=== PATIENT | female | born 1960 | race African-American/Black ===

== ENCOUNTER 2016-09-06 02:59 | Emergency (ER) | payer OTHER ==
[2016-09-06 03:21] VITALS: BP 142/87; PULSE 81; TEMP 98; BMI 33.6
--- NOTE | 2016-09-06 03:47 | PDOC ---
History of Present Illness - General Chief Complaint: Syncope/Near Syncope Stated Complaint: SYNCOPE Time Seen by Provider: 09/06/16 03:21 History Source: Patient, Family Exam Limitations: No Limitations - History of Present Illness Initial Comments: 09/06/16 03:42 55yo Female patient w/ PmHx: HTN, CVA, Syncope presents to ED via EMS c/o Syncope. Family states patient was trying to break up an argument between family member when she passed out onto floor. Patient states she has not really slept in 3 days due to recent of her brother. Associated h/a. Neg LOC, Neck pain, n/v/d, Cp, Back pain, Abd pain, confusion, or any other complaints at this time. EMS states patient b/p- 220/150 on scene but has since lowered. Patient c/o pain to back of head. Patient denies any other complaints at this time. Presenting Symptoms: Syncope Timing/Duration: reports: resolved prior to arrival Past History - Travel Traveled outside of the country in the last 30 days: No Close contact w/someone who was outside of country & ill: No - Past Medical History Allergies/Adverse Reactions: Allergies Allergy/AdvReac Type Severity Reaction Status Date / Time dipyridamole Allergy Intermediate Difficulty Verified 09/06/16 03:21 [From Persantine] Breathing iodine Allergy Intermediate Difficulty Verified 09/06/16 03:21 Breathing Home Medications: Ambulatory Orders Risperidone [Risperdal -] 2 mg PO DAILY #0 tablet 05/07/15 Amlodipine Besylate [Norvasc -] 10 mg PO DAILY 11/09/15 Cetirizine HCl [Zyrtec -] 10 mg PO DAILY #7 tablet 11/09/15 Clindamycin [Cleocin -] 300 mg PO TID #21 capsule 11/09/15 Asthma: No Cardiac Disorders: No CVA: Yes (tia) Diabetes: No HTN: Yes Psychiatric Problems: Yes (anxiety, depression) Suicide Attempt (Hx): Yes - Surgical History Abdominal Surgery: Yes - Immunization History Immunization Up to Date: Yes - Psycho/Social/Smoking Cessation Hx Anxiety: Yes Suicidal Ideation: No Smoking Status: No Smoking History: Never smoked Have you smoked in the past 12 months: No Number of Cigarettes Smoked Daily: 0 Information on smoking cessation initiated: No Hx Alcohol Use: No Drug/Substance Use Hx: No Substance Use Type: None Hx Substance Use Treatment: No Cardiac Specific PMH - Complaint Specific PMHX Abdominal Aortic Aneurysm: No Angina: No Cardiac Arrhythmia: No Cardiac Stent: No GERD: No Myocardial Infarction: No Pacemaker: No Pulmonary Embolus: No Valvular Heart Disease: No Peripheral Vascular Disease: No Review of Systems - Review of Systems Able to Perform ROS?: Yes Is the patient limited Maltese proficient: No Constitutional: No: Chills, Fever Respiratory: No: Cough, Shortness of Breath, Stridor, Wheezing Cardiac (ROS): Yes: Syncope. No: Chest Pain, Edema, Lightheadedness, Palpitations, Chest Tightness ABD/GI: No: Constipated, Diarrhea, Nausea, Poor Appetite, Poor Fluid Intake, Vomiting : No: Dysuria, Hematuria Musculoskeletal: No: Back Pain Integumentary: No: Erythema, Rash Neurological: Yes: Other (Head Pain). No: Headache, Numbness, Paresthesia, Seizure, Tremors, Weakness, Ataxia, Dizziness All Other Systems: Reviewed and Negative *Physical Exam - Vital Signs Last Vital Signs Temp Pulse Resp BP Pulse Ox 98.0 F 81 19 142/87 99 09/06/16 03:18 09/06/16 03:18 09/06/16 03:18 09/06/16 03:18 09/06/16 03:18 - Physical Exam General Appearance: Yes: Nourished, Appropriately Dressed, Alcohol on Breath. No: Apparent Distress, Mild Distress, Moderate Distress, Severe Distress HEENT: positive: EOMI, MARTINA, Normal ENT Inspection, Normal Voice, Symmetrical, TMs Normal, Pharynx Normal. negative: Pharyngeal Erythema, Tonsillar Exudate, Tonsillar Erythema, Nasal Congestion, Rhinorrhea, Sinus Tenderness, TM Bulging, TM Dull, TM Erythema Neck: positive: Trachea midline, Normal Thyroid, Supple. negative: Tender, Decreased range of motion, Stridor, Lymphadenopathy (R), Lymphadenopathy (L), Tender lateral, Tender midline Respiratory/Chest: positive: Lungs Clear, Normal Breath Sounds. negative: Respiratory Distress, Accessory Muscle Use, Labored Respiration, Rapid RR, Rhonchi, Stridor, Wheezing Cardiovascular: positive: Regular Rhythm, Regular Rate. negative: Edema, JVD, Murmur Gastrointestinal/Abdominal: positive: Normal Bowel Sounds, Soft. negative: Distended, Guarding, Rebound, Tenderness Musculoskeletal: positive: Normal Inspection. negative: CVA Tenderness Extremity: positive: Normal Capillary Refill, Normal Inspection, Normal Range of Motion, Pelvis Stable. negative: Pedal Edema, Swelling, Calf Tenderness Integumentary: positive: Normal Color, Dry, Warm Neurologic: positive: physical education professor II-XII NML intact, Fully Oriented, Alert, Normal Mood/ Affect, Normal Response, Motor Strength 5/5 Heart Score/ECG Review - History History: Slightly suspicious - Electrocardiogram EKG: Normal - Age Age: 45-65 - Risk Factors Risk Factors Heart Score: Yes Hx Hypertension Based on the list above the patient has:: 1-2 risk factors - Troponin Troponin: </= normal limit - Score Heart Score - Total: 2 - ECG Impressions Normal ECG: Yes Non-specific ST Elevation: No Ischemic Changes: No Bradycardia: No Torsades lynn Pointes: No WPW: No ED Treatment Course - LABORATORY CBC & Chemistry Diagram: 09/06/16 04:09 09/06/16 04:09 - ADDITIONAL ORDERS Additional order review: Laboratory Results 09/06/16 09/06/16 04:09 04:09 Sodium 144 Potassium 3.8 Chloride 105 Carbon Dioxide 28 Anion Gap 11 BUN 16 Creatinine 0.7 Creat Clearance w eGFR > 60 Random Glucose 99 Calcium 8.8 Total Bilirubin 0.2 D AST 16 ALT 27 Alkaline Phosphatase 74 Creatine Kinase 322 H D Creatine Kinase Index 0.7 CK-MB (CK-2) 2.343 Troponin I < 0.02 Total Protein 7.9 Albumin 3.9 Alcohol, Quantitative 6.9 H* 09/06/16 04:09 RBC 4.89 MCV 81.0 MCHC 32.9 RDW 15.3 MPV 10.1 Neutrophils % 41.3 L Lymphocytes % 49.0 H Monocytes % 7.2 Eosinophils % 1.9 Basophils % 0.6 - RADIOLOGY Radiology Studies Ordered: Category Date Time Status CERVICAL SPINE CT W/O CONTR [CT] Stat CT Scan 09/06/16 03:[address] WITHOUT CONTRAST [CT] Stat CT Scan 09/06/16 03:29 Taken *DC/Admit/Observation/Transfer Diagnosis at time of Disposition: Syncope Qualifiers: Syncope type: unspecified Qualified Code(s): R55 - Syncope and collapse - Discharge Dispostion Disposition: HOME Condition at time of disposition: Improved Admit: No - Patient Instructions Printed Discharge Instructions: DI for Syncope in Adults (Fainting) Additional Instructions: FOLLOW UP WITH YOUR PRIMARY CARE PROVIDER NEEDED. RETURN IF ANY CONCERNS FOR FURTHER EVALUATION. Print Language: MACEDONIAN
[2016-09-06 04:19] LABS: BASOPHIL 0.6 % (0-2.0); EOSINOPHIL 1.9 % (0-4.5); MCH 26.6 pg (25.7-33.7); MCHC 32.9 g/dl (32.0-36.0); MEAN PLT VOLUME 10.1 fl (7.5-11.1); NEUTROPHILS 41.3 % (42.8-82.8); PLATELET COUNT 122 K/MM3 (134-434); RDW 15.3 % (11.6-15.6); WHITE BLOOD COUNT 5.3 K/mm3 (4.0-10.0)
[2016-09-06 04:38] LABS: ALBUMIN 3.9 g/dl (3.4-5.0); ANION GAP 11 (8-16); BILIRUBIN,TOTAL 0.2 mg/dL (0.2-1.0); CALCIUM 8.8 mg/dL (8.5-10.1); CO2 28 mmol/L (21-32); CREATININE 0.7 mg/dL (0.55-1.02); GLUCOSE,RANDOM 99 mg/dL (74-106); SGOT/AST 16 U/L (15-37); SGPT/ALT 27 U/L (12-78); TOT PROT 7.9 g/dl (6.4-8.2)
[2016-09-06 04:41] LABS: ALK PHOS 74 U/L (45-117); TROPONIN I < 0.02 ng/ml (0.00-0.05)
--- NOTE | 2016-09-06 12:21 | EKG ---
Test Reason : Blood Pressure : / mmHG Vent. Rate : 075 BPM Atrial Rate : 075 BPM P-R Int : 210 ms QRS Dur : 094 ms QT Int : 384 ms P-R-T Axes : 053 027 048 degrees QTc Int : 428 ms SINUS RHYTHM WITH 1ST DEGREE A-V BLOCK MINIMAL VOLTAGE CRITERIA FOR LVH, MAY BE NORMAL VARIANT BORDERLINE ECG WHEN COMPARED WITH ECG OF 04-MAY-2015 19:33, [place] INTERVAL HAS INCREASED Confirmed by BERNIE PRESTON, GUMARO ([id number]) on 09/06/2016 12:20:52 PM Referred By: Confirmed By:GUMARO GIBBS MD
== END 2016-09-06 08:20 | disposition home or self-care (01) ==
LOC: JER 02:59 → SUPCPDRO 02:59 → JER 08:20
DX: R55 Syncope and collapse (principal); I10 Essential (primary) hypertension; F41.8 Other specified anxiety disorders; Z86.73 Personal history of transient ischemic attack (TIA), and cerebral infarction without residual deficits
CPT/HCPCS: 36415; 70450-TC; 72125-TC; 80053; 80307; 82550; 82553; 84484; 85025; 93005; 93010; 99283-25

== ENCOUNTER 2020-01-27 15:32 | Inpatient (IN) | payer OTHER ==
[2020-01-27 15:39] VITALS: BMI 36.8
[2020-01-27] MEDS ORDERED: dilTIAZem HCL 50 MG/10 ML - 10 ML VIAL IVPUSH ONE (15:58)
[2020-01-27] MEDS ORDERED: dilTIAZem HCL 125 MG/25 ML - 25 ML VIAL ONE (15:59)
[2020-01-27 16:06] LABS: BASO % 0.9 % (0-2.0); EOS % 1.9 % (0-4.5); HEMATOCRIT 40.1 % (32.4-45.2); HEMOGLOBIN 13.1 GM/dL (10.7-15.3); MCH 26.9 pg (25.7-33.7); MCHC 32.8 g/dl (32.0-36.0); MEAN CELL VOLUME 81.9 fl (80-96); MEAN PLT VOLUME 10.4 fl (7.5-11.1); NEUT % 37.2 % (42.8-82.8); PLATELET COUNT 165 K/MM3 (134-434); RBC 4.89 M/mm3 (3.60-5.2); RDW 15.4 % (11.6-15.6); WHITE BLOOD COUNT 6.7 K/mm3 (4.0-10.0)
--- NOTE | 2020-01-27 16:07 | PDOC ---
Documentation entered by Emily Gomez SCRIBE, acting as scribe for Dimple Jacobs MD. Dimple Jacobs MD: This documentation has been prepared by the scribe, Emily Rahman SCRIBE, under my direction and personally reviewed by me in its entirety. I confirm that the documentation accurately reflects all work, treatment, procedures, and medical decision making performed by me. Attending Attestation - Resident Resident Name: Gregorio Matthews - ED Attending Attestation I have performed the following: I have examined & evaluated the patient, The case was reviewed & discussed with the resident, I agree w/resident's findings & plan, Exceptions are as noted - HPI HPI: 59 yo F with history HTN presents from Dr. Whitmore's office for aflutter, found on EKG. She has had intermittent symptoms in the past, described as lightheadedness with palpitations. She has taken B-blockers in the past, it appears it was for the same diagnosis. Currently c/o dizziness, palpitations. - Physicial Exam PE: GENERAL: Awake, alert, and fully oriented, in no acute distress HEAD: No signs of trauma EYES: PERRLA, EOMI, sclera anicteric, conjunctiva clear ENT: Auricles normal inspection, hearing grossly normal, nares patent, oropharynx clear without exudates. Moist mucosa NECK: Normal ROM, supple, no lymphadenopathy, JVD, or masses LUNGS: Breath sounds equal, clear to auscultation bilaterally. No wheezes, and no crackles HEART: Tachycardic with regular rhythm, normal S1 and S2, no murmurs, rubs or gallops ABDOMEN: Soft, nontender, normoactive bowel sounds. No guarding, no rebound. No masses EXTREMITIES: Normal range of motion, no edema. No clubbing or cyanosis. No cords, erythema, or tenderness NEUROLOGICAL: Cranial nerves II through XII grossly intact. Normal speech. Motor and sensation intact SKIN: Warm, dry, normal turgor, no rashes or lesions noted. - Medical Decision Making 01/27/20 16:18 Pt returned to sinus rhythm with cardizem 10 mg IVP. Reports improvement in symptoms afterwards. Await labs. Will discuss case with Dr. Whitmore, plan for admission. Discharge - Discharge Information Problems reviewed: Yes Clinical Impression/Diagnosis: Atrial flutter Qualifiers: Atrial flutter type: unspecified Qualified Code(s): I48.92 - Unspecified atrial flutter Condition: Stable - Follow up/Referral - Patient Discharge Instructions - Post Discharge Activity
[2020-01-27 16:23] LABS: INR 0.93 (0.83-1.09)
--- NOTE | 2020-01-27 16:29 | PDOC ---
History of Present Illness - General Chief Complaint: Chest Pain Stated Complaint: PALPITATIONS Time Seen by Provider: 01/27/20 15:43 - History of Present Illness Initial Comments: 01/27/20 16:29 59 yo female with pmh htn presents to ED coming from [facility] office Dr. Grimm with Atachy vs Aflutter that started today. Pt explains shes had symptoms on and off for one year where she felt lightheaded and tachycardic. Pt usually just sat down and relaxed and symptoms subsided within one day. Pt explains at [facility] when she was getting rotator cuff sugery on August 24 she had similar symptoms and she was started on metroprolol 25mg for symptoms. Pt then explained that she would still have symptoms with high blood pressure in the 200s usually around 180 and then would have very high HR and then she would take her metroprolol. After taking metroprolol she would feel dizzy so she started cutting her metroprolol to 12.5 instead of her normal 25 dose in December. Since then she had more symptoms and today felt same symptoms but PSH: rotworse. Pt had appointment with hand rug braider and at [facility] rug braider office showed aflutter and then pt was sent here. Pt denies fevers, chills, SOB, chest pain, abdominal pain, or ext swelling. Pt has no dysuria or change in urine output. PMH: HTN PSH: rotator cuff and Meds: Metroprolol 25mg, HCTZ, Norvasc Allergies: dipyridamole, iodine Social: Denies smoking, drugs, or alcohol PCP: Dr. Lai Past History - Medical History Allergies/Adverse Reactions: Allergies Allergy/AdvReac Type Severity Reaction Status Date / Time dipyridamole Allergy Intermediate Difficulty Verified 01/27/20 15:37 [From Persantine] Breathing iodine Allergy Intermediate Difficulty Verified 01/27/20 15:37 Breathing Home Medications: Ambulatory Orders Amlodipine Besylate [Norvasc -] 10 mg PO DAILY 11/09/15 Lisinopril 10 mg PO DAILY 01/27/20 Metoprolol Succinate 25 mg PO DAILY 01/27/20 Asthma: No Cardiac Disorders: Yes CVA: Yes (tia) COPD: No Diabetes: No HTN: Yes Psychiatric Problems: Yes (anxiety, depression) - Surgical History Abdominal Surgery: Yes - Reproductive History Is Patient Now?: No - Immunization History Immunization Up to Date: Yes - Psycho-Social/Smoking History Smoking Status: No Smoking History: Never smoked Have you smoked in the past 12 months: No Number of Cigarettes Smoked Daily: 0 - Substance Abuse Hx (Audit-C & DAST Scrn) How often the patient has a drink containing alcohol: Never Score: In Men: 4 or > Positive; In Women: 3 or > Positive: 0 Screen Result (Pos requires Nsg. Audit-10AR): Negative Review of Systems - Review of Systems Able to Perform ROS?: Yes Comments:: 01/27/20 18:47 GENERAL/CONSTITUTIONAL: No fever or chills. No weakness. HEAD, EYES, EARS, NOSE AND THROAT: No change in vision. No ear pain or discharge. No sore throat. CARDIOVASCULAR: No chest pain or shortness of breath RESPIRATORY: No cough, wheezing, or hemoptysis. GASTROINTESTINAL: Nauseos. NO vomiting, diarrhea or constipation. GENITOURINARY: No dysuria, frequency, or change in urination. MUSCULOSKELETAL: No joint or muscle swelling or pain. No neck or back pain. SKIN: No rash NEUROLOGIC: No headache. Lightheaded ENDOCRINE: No increased thirst. No abnormal weight change *Physical Exam - Vital Signs Last Vital Signs Temp Pulse Resp BP Pulse Ox 98.5 F 78 18 102/61 99 01/27/20 15:37 01/27/20 16:10 01/27/20 16:10 01/27/20 16:10 01/27/20 16:10 - Physical Exam 01/27/20 18:51 GENERAL: Awake, alert, and fully oriented, in severe distress HEAD: No signs of trauma, normocephalic, atraumatic EYES: PERRLA, EOMI, sclera anicteric, conjunctiva clear ENT: Auricles normal inspection, hearing grossly normal, nares patent, oroph arynx clear without exudates. Moist mucosa NECK: Normal ROM, supple, no lymphadenopathy, JVD, or masses LUNGS: bilateral crackles at bases. HEART:tachycardic with irregular pulses. ABDOMEN: Soft, nontender, normoactive bowel sounds. No guarding, no rebound. No masses EXTREMITIES : Normal inspection, Normal range of motion, no edema. No clubbing or cyanosis. NEUROLOGICAL: Cranial nerves II through XII grossly intact. Normal speech, no focal sensorimotor deficits SKIN: Warm, Dry, normal turgor, no rashes or lesions noted 01/27/20 19:02 ED Treatment Course - LABORATORY CBC & Chemistry Diagram: 01/27/20 16:00 01/27/20 16:00 - ADDITIONAL ORDERS Additional order review: Laboratory Results 01/27/20 16:00 PT with INR 11.00 INR 0.93 - Medications Given in the ED: ED Medications Discontinued Medications Generic Name Dose Route Start Last Admin Trade Name Ever PRN Reason Stop Dose Admin Diltiazem HCl 20 mg 01/27/20 15:58 01/27/20 16:08 Cardizem Injection - IVPUSH 01/27/20 15:59 10 mg ONCE ONE Administration Medical Decision Making - Medical Decision Making 01/27/20 16:25 59 yo female with pmh htn presents to ED for aflutter that started today. Pt was got cbc, cmp, ekg, cardiac enzymes, coags. Pt was given 10 mg diltiazem and pt went back into sinus rhythm at 76 bpm. In initial EKG looked like demand ischemia but second ekg showed no elevations. Greenhouse Assistant Dr. Mistry was called who stated we should give 5mg eliquis BID. Stop HCTZ and norvasc and up dosage of metroprolol to 50mg based on BP. Will give 5 mg eliquis and have BP meds defered to inpatient team. 01/27/20 17:28 Pt Bp dropped to 70s/40s and mentating less decided to push 1L of NS. PT BP went up to 127/74. Pt is mentating well. Another IV was put in Right AC. 01/27/20 17:50 Pt HPI, ED course, and plan of treatment was discussed with Dr. Andrade who the admission will be under. 01/27/20 19:18 PM team made aware of pt because pt still in ED Discharge - Discharge Information Problems reviewed: Yes Clinical Impression/Diagnosis: Afib Qualifiers: Atrial fibrillation type: unspecified Qualified Code(s): I48.91 - Unspecified atrial fibrillation Condition: Guarded - Admission Yes - Follow up/Referral Referrals: Amanda Lai MD [Primary Care Provider] - - Patient Discharge Instructions - Post Discharge Activity
[2020-01-27 16:41] LABS: ALBUMIN 3.7 g/dl (3.4-5.0); ALK PHOS 69 U/L (45-117); ANION GAP 6 MMOL/L (8-16); BILIRUBIN,TOTAL 0.2 mg/dL (0.2-1); CALCIUM 8.9 mg/dL (8.5-10.1); CHLORIDE 110 mmol/L (98-107); CO2 27 mmol/L (21-32); CREATININE 0.7 mg/dL (0.55-1.3); GLUCOSE,RANDOM 112 mg/dL (74-106); POTASSIUM 4.1 mmol/L (3.5-5.1); SGOT/AST 40 U/L (15-37); SGPT/ALT 46 U/L (13-61); SODIUM 144 mmol/L (136-145); TOT PROT 7.6 g/dl (6.4-8.2)
[2020-01-27] MEDS ORDERED: SODIUM CHLORIDE 0.9% 500 ML INFUS.BAG IV ONE (16:46)
--- NOTE | 2020-01-27 18:56 | CON.CARD ---
Consult Consult Specialty:: Cardiology - History of Present Illness History of Present Illness: Presented to [facility] office with palpitations, weakness, lightness. Similar symptoms for the year with negative dx, stress MIBI and ECHO 24 Holter In the office A tachy 2;1 block VR 140 BP 100/60 - patient usually runs BP 150-170 systolic ECHO today in the office nl LV nl EF nl RV I the ER converted to SR 1 degree AVB with 10 mg of Cardizem IV with resolution of Sx - History Source History Provided By: Patient, Medical Record - Past Medical History PEDIATRIC ASSOCIATE: Yes: Syncope Cardio/Vascular: Yes: HTN ...: No Psych: Yes: Schizophrenia - Past Surgical History Past Surgical History: Yes: , Hysterectomy - Alcohol/Substance Use Hx Alcohol Use: No - Smoking History Smoking history: Never smoked Have you smoked in the past 12 months: No Aproximately how many cigarettes per day: 0 Home Medications - Allergies Allergies/Adverse Reactions: Allergies Allergy/AdvReac Type Severity Reaction Status Date / Time dipyridamole Allergy Intermediate Difficulty Verified 01/27/20 15:37 [From Persantine] Breathing iodine Allergy Intermediate Difficulty Verified 01/27/20 15:37 Breathing - Home Medications Home Medications: Ambulatory Orders Amlodipine Besylate [Norvasc -] 10 mg PO DAILY 11/09/15 Lisinopril 10 mg PO DAILY 01/27/20 Metoprolol Succinate 25 mg PO DAILY 01/27/20 Review of Systems - Review of Systems Constitutional: reports: Malaise, Weakness Eyes: reports: No Symptoms HENT: reports: No Symptoms Neck: reports: No Symptoms Cardiovascular: reports: No Symptoms, Palpitations Gastrointestinal: reports: No Symptoms Genitourinary: reports: No Symptoms Breasts: reports: No Symptoms Reported Musculoskeletal: reports: No Symptoms Integumentary: reports: No Symptoms Neurological: reports: No Symptoms Endocrine: reports: No Symptoms Hematology/Lymphatic: reports: No Symptoms Psychiatric: reports: No Symptoms Vital Signs: Vital Signs Temperature 98.5 F 01/27/20 15:37 Pulse Rate 78 01/27/20 16:10 Respiratory Rate 18 01/27/20 16:10 Blood Pressure 102/61 01/27/20 16:10 O2 Sat by Pulse Oximetry (%) 100 01/27/20 16:55 Constitutional: Yes: Well Nourished, No Distress, Calm Eyes: Yes: WNL, Conjunctiva Clear, EOM Intact HENT: Yes: WNL, Atraumatic, Normocephalic Neck: Yes: WNL, Supple, Trachea Midline Respiratory: Yes: WNL, Regular, CTA Bilaterally Gastrointestinal: Yes: WNL, Normal Bowel Sounds Renal/: Yes: WNL Cardiovascular: Yes: Tachycardia Musculoskeletal: Yes: WNL Extremities: Yes: WNL Integumentary: Yes: WNL Neurological: Yes: WNL, Alert, Oriented ...Motor Strength: WNL Psychiatric: Yes: WNL, Alert, Oriented - Other Data Labs, Other Data: CBC, BMP 01/27/20 16:00 01/27/20 16:00 INR, PTT INR 0.93 (0.83-1.09) 01/27/20 16:00 Troponin, BNP 01/27/20 16:00 Troponin I < 0.02 Troponin, BNP 01/27/20 16:00 Troponin I < 0.02 Imaging - Results EKG: Image Reviewed (as described in HPI) Problem List - Problems (1) Afib Code(s): I48.91 - UNSPECIFIED ATRIAL FIBRILLATION Qualifiers: Atrial fibrillation type: unspecified Qualified Code(s): I48.91 - Unspecified atrial fibrillation (2) Bronchitis Code(s): J40 - BRONCHITIS, NOT SPECIFIED ACUTE OR CHRONIC (3) Dehydration Code(s): E86.0 - DEHYDRATION (4) Diaphoresis Code(s): R61 - GENERALIZED HYPERHIDROSIS (5) Fall Code(s): W19.XXXA - UNSPECIFIED FALL, INITIAL ENCOUNTER (6) Headache Code(s): R51 - HEADACHE (7) Ileus Code(s): K56.7 - ILEUS, UNSPECIFIED (8) Nausea & vomiting Code(s): R11.2 - NAUSEA WITH VOMITING, UNSPECIFIED (9) Near syncope Code(s): R55 - SYNCOPE AND COLLAPSE (10) Neck muscle strain Code(s): S16.1XXA - STRAIN OF MUSCLE, FASCIA AND TENDON AT NECK LEVEL, INIT (11) Palpitations Code(s): R00.2 - PALPITATIONS (12) Right shoulder strain Code(s): S46.911A - STRAIN UNSP MUSC/FASC/TEND AT SHLDR/UP ARM, RIGHT ARM, INIT (13) Syncope Code(s): R55 - SYNCOPE AND COLLAPSE (14) Tooth ache Code(s): K08.8 - OTHER SPECIFIED DISORDERS OF TEETH AND SUPPOR * DO NOT USE * (15) Vomiting Code(s): R11.10 - VOMITING, UNSPECIFIED (16) Yeast infection Code(s): B37.9 - CANDIDIASIS, UNSPECIFIED Assessment/Plan New onset of Atrial tachycardia terminated with Cardizem.ECHO today nl EF HTN, HLP, morbid obesity Plan; AC with Eliquis start Metoprolol ER 25 and/or Cardizem if BP allows Hold Amlodipine and Accuretic D dimer if elevated CTA to r/o PE
--- NOTE | 2020-01-27 19:06 | HP ---
CHIEF COMPLAINT: Palpitation HISTORY OF PRESENT ILLNESS: 59 year old morbidly obese female with known history of hypertension, rotator c uff tear repair, caesarean section, recently diagnosed atrial fibrillation (August 2019) , on beta viktor therapy, who presents to the ED complaining of palpitations and lightheadedness this morning. Apparently she has been having these symptoms intermittently since diagnosis. She also admitted to decreasing her beta viktor intake to 12.5 mg. She denied shortness of breath or kannan chest pains. At the ED she was found to be tachycardic, in Afib with RVR. She received a dose of IV diltiazem which caused a transient decrease in her blood pressure. She received fluid bolus with good response. Rhythm converted to sinus rhythm. Recent Travel: none PAST MEDICAL HISTORY: as above PAST SURGICAL HISTORY: as above Social History: Smoking: denies Alcohol: denies Drugs: denies Family history: mother is alive, with hypertension and heart disease. Father with history of DM Allergies dipyridamole [From Persantine] Allergy (Intermediate, Verified 01/27/20 15:37) Difficulty Breathing iodine Allergy (Intermediate, Verified 01/27/20 15:37) Difficulty Breathing HOME MEDICATIONS: Home Medications Medication Instructions Recorded Amlodipine Besylate [Norvasc -] 10 mg PO DAILY 11/09/15 Lisinopril 10 mg PO DAILY 01/27/20 Metoprolol Succinate 25 mg PO DAILY 01/27/20 REVIEW OF SYSTEMS CONSTITUTIONAL: Absent: fever, chills, diaphoresis, generalized weakness, malaise, loss of appetite, weight change HEENT: Absent: rhinorrhea, nasal congestion, throat pain, throat swelling, difficulty swallowing, mouth swelling, ear pain, eye pain, visual changes CARDIOVASCULAR: Absent: chest pain, syncope, palpitations, irregular heart rate, lightheadedness, peripheral edema RESPIRATORY: Absent: cough, shortness of breath, dyspnea with exertion, orthopnea, wheezing, stridor, hemoptysis GASTROINTESTINAL: Absent: abdominal pain, abdominal distension, nausea, vomiting, diarrhea, constipation, melena, hematochezia GENITOURINARY: Absent: dysuria, frequency, urgency, hesitancy, hematuria, flank pain, genital pain MUSCULOSKELETAL: Absent: myalgia, arthralgia, joint swelling, back pain, neck pain SKIN: Absent: rash, itching, pallor HEMATOLOGIC/IMMUNOLOGIC: Absent: easy bleeding, easy bruising, lymphadenopathy, frequent infections ENDOCRINE: Absent: unexplained weight gain, unexplained weight loss, heat intolerance, cold intolerance NEUROLOGIC: Absent: headache, focal weakness or paresthesias, dizziness, unsteady gait, seizure, mental status changes, bladder or bowel incontinence PSYCHIATRIC: Absent: anxiety, depression, suicidal or homicidal ideation, hallucinations. PHYSICAL EXAMINATION Vital Signs - 24 hr 01/27/20 01/27/20 01/27/20 15:37 16:00 16:10 Temperature 98.5 F Pulse Rate 145 H Pulse Rate [ 147 H 78 Apical] Respiratory 20 24 H 18 Rate Blood Pressure 145/97 Blood Pressure 133/92 102/61 [Right Arm] O2 Sat by Pulse 100 99 99 Oximetry (%) 01/27/20 16:55 Temperature Pulse Rate Pulse Rate [ Apical] Respiratory Rate Blood Pressure Blood Pressure [Right Arm] O2 Sat by Pulse 100 Oximetry (%) GENERAL: Awake, alert, and fully oriented, in no acute distress. HEAD: Normal with no signs of trauma. EYES: Pupils equal, round and reactive to light, extraocular movements intact, sclera anicteric, conjunctiva clear. No lid lag. EARS, NOSE, THROAT: Ears normal, nares patent, oropharynx clear without exudates. Moist mucous membranes. NECK: Normal range of motion, supple without lymphadenopathy, JVD, or masses. LUNGS: Breath sounds equal, clear to auscultation bilaterally. No wheezes, and no crackles. No accessory muscle use. HEART: Regular rate and rhythm, normal S1 and S2 without murmur, rub or gallop. ABDOMEN: Soft, nontender, not distended, normoactive bowel sounds, no guarding, no rebound, no masses. No hepatomegaly or splenomegaly. MUSCULOSKELETAL: Normal range of motion at all joints. No bony deformities or tenderness. No CVA tenderness. UPPER EXTREMITIES: 2+ pulses, warm, well-perfused. No cyanosis. No clubbing. No peripheral edema. LOWER EXTREMITIES: 2+ pulses, warm, well-perfused. No calf tenderness. No peripheral edema. NEUROLOGICAL: Cranial nerves II-XII intact. Normal speech. Normal gait. PSYCHIATRIC: Cooperative. Good eye contact. Appropriate mood and affect. SKIN: Warm, dry, normal turgor, no rashes or lesions noted, normal capillary refill. Laboratory Results - last 24 hr 01/27/20 01/27/2001/26/20 16:00 16:00 16:00 WBC 6.7 RBC 4.89 Hgb 13.1 Hct 40.1 MCV 81.9 MCH 26.9 MCHC 32.8 RDW 15.4 Plt Count 165 D MPV 10.4 Absolute Neuts (auto) 2.5 Neutrophils % 37.2 L Lymphocytes % 52.0 H Monocytes % 8.0 Eosinophils % 1.9 Basophils % 0.9 Nucleated RBC % 0 PT with INR 11.00 INR 0.93 PTT (Actin FS) 29.0 Sodium 144 Potassium 4.1 Chloride 110 H Carbon Dioxide 27 Anion Gap 6 L BUN 8.0 Creatinine 0.7 Est GFR (CKD-EPI)AfAm 110.69 Est GFR (CKD-EPI)NonAf 95.50 Random Glucose 112 H Calcium 8.9 Total Bilirubin 0.2 AST 40 H ALT 46 Alkaline Phosphatase 69 Creatine Kinase 274 H Creatine Kinase Index No Result Required. CK-MB (CK-2) < 1.0 Troponin I < 0.02 Total Protein 7.6 Albumin 3.7 ASSESSMENT/PLAN: 1. Paroxysmal atrial fibrillation - input by [employer] [address] Whitmore appreciated - now on sinus rhythm - check TSH if not yet done - check UA - check electrolytes - serial troponins - cont with Beta blockers 50 mg bid as per [employer] - monitor BP - IVF as needed to maintain BP - telemetry monitoring 2. Hypertension - was borderline hypotensive after IV Diltiazem - BP improved now - hold off on other antihypertensives apart from BB 3. DVT prophylaxis - On Eliquis
[2020-01-27 21:45] LABS: URINE APPEARANCE CLEAR; URINE BILIRUBIN NEGATIVE (NEGATIVE); URINE COLOR YELLOW; URINE GLUCOSE (UA) NEGATIVE (NEGATIVE); URINE KETONE NEGATIVE (NEGATIVE); URINE LEUK ESTERASE NEGATIVE (NEGATIVE); URINE NITRITE NEGATIVE (NEGATIVE); URINE PROTEIN NEGATIVE (NEGATIVE); URINE UROBILINOGEN 0.2 mg/dL (0.2-1.0)
[2020-01-27 21:58] LABS: MAGNESIUM 2.1 mg/dL (1.8-2.4)
[2020-01-27] MEDS: APIXABAN 5 MG TABLET PO SCH (22:04)
[2020-01-27] MEDS ORDERED: APIXABAN 5 MG TABLET ONE (22:04)
[2020-01-28] MEDS ORDERED: ACETAMINOPHEN 325 MG TABLET (FP) PO PRN (06:19)
[2020-01-28] MEDS: APIXABAN 5 MG TABLET PO SCH ×2 (09:42→22:47)
--- NOTE | 2020-01-28 11:29 | PN ---
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 She admitted to decreasing her beta viktor intake to 12.5 mg. She denied shortness of breath or chest pains. - Current Medication List Current Medications: Active Medications Apixaban (Eliquis -) 5 mg PO BID [facility] Last Admin: 01/28/20 09:42 Dose: 5 mg Documented by: - Objective Vital Signs: Vital Signs Temperature 98.2 F 01/28/20 05:00 Pulse Rate 68 01/28/20 05:00 Respiratory Rate 20 01/28/20 05:00 Blood Pressure 130/67 01/28/20 05:00 O2 Sat by Pulse Oximetry (%) 99 01/28/20 05:00 Constitutional: Yes: No Distress, Calm Neck: Yes: Supple Cardiovascular: Yes: Regular Rate and Rhythm Respiratory: Yes: Regular, CTA Bilaterally Gastrointestinal: Yes: Normal Bowel Sounds, Soft, Abdomen, Obese Edema: No Labs: CBC, BMP 01/27/20 16:00 01/27/20 16:00 INR, PTT INR 0.93 (0.83-1.09) 01/27/20 16:00 - ....Imaging EKG: Report Reviewed (Tele: NSR w/o recurrence of PAF) Assessment/Plan 01/27/2020 ECHO today in the office nl LV nl EF nl RV Problem List - Problems (1) Afib Code(s): I48.91 - UNSPECIFIED ATRIAL FIBRILLATION Qualifiers: Atrial fibrillation type: unspecified Qualified Code(s): I48.91 - Unspecified atrial fibrillation (11) Palpitations Code(s): R00.2 - PALPITATIONS Assessment/Plan 1. PAF with RVR ->SR 2. Hypertension 3. Palpitations 4. Hyperlipidemia 5. Morbid obesity r/o OSAS P:1. Start Toprol XL 25 qd, continue AC with Eliquis 2. Sleep study as outpatient
[2020-01-28] MEDS: metoPROLOL SUCCINATE 25 MG TAB.SR.24H (FP) PO SCH (12:10)
[2020-01-28] MEDS ORDERED: amLODIPine BESYLATE 10 MG TABLET (FP) PO SCH (18:45)
--- NOTE | 2020-01-28 18:52 | PN ---
Progress Note, Physician History of Present Illness: Seen and examine at bedside. D Dimer significantly elevated. Stressed about receiving a letter from her son saying she was a tough mom. Hypertensive to 154/80 just now with a headache. review of previous visits shows multiple visits for syncope. Endorses she does not have iodine allergy and never had anaphylaxis. 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 She was on OCPs. Never smoked. Mother had a "blood clot". Denies nausea vomiting fever chills chest pain or SOB. - Current Medication List Current Medications: Active Medications Apixaban (Eliquis -) 5 mg PO BID [facility] Last Admin: 01/28/20 09:42 Dose: 5 mg Documented by: Metoprolol Succinate (Toprol Xl -) 25 mg PO DAILY [facility] Last Admin: 01/28/20 12:10 Dose: 25 mg Documented by: - Objective Vital Signs: Vital Signs Temperature 98 F 01/28/20 13:00 Pulse Rate 67 01/28/20 13:00 Respiratory Rate 22 H 01/28/20 13:00 Blood Pressure 129/77 01/28/20 13:00 O2 Sat by Pulse Oximetry (%) 97 01/28/20 13:00 Constitutional: Yes: Anxious, Obese Eyes: Yes: Conjunctiva Clear, EOM Intact HENT: Yes: Atraumatic, Normocephalic Neck: Yes: Supple Cardiovascular: Yes: Regular Rate and Rhythm Respiratory: Yes: Regular, CTA Bilaterally Gastrointestinal: Yes: WNL, Soft Extremities: Yes: Other (RLE taut when compared to LLE.) Edema: Yes Edema: RLE: Trace Neurological: Yes: Alert, Oriented, Cran Nerves II-XII Intact Psychiatric: Yes: Alert, Oriented Labs: CBC, BMP 01/27/20 16:00 01/27/20 16:00 INR, PTT INR 0.93 (0.83-1.09) 01/27/20 16:00 - ....Imaging Chest X-ray: Report Reviewed Impression/Plan Impression/Plan: 59F with history of HTN CVA recent PAF diagnosis and history of DVT/PE 27 years ago p/w a fib with RVR now in NSR. Paroxysmal atrial fibrillation/history of CVA. RVR could be from PE vs decreasing metoprolol dose to 12.5mg on her own. cardiology consult noted and appreciated continue Toprol Xl 25mg po daily start her home norvasc but half dose at 5mg po daily TSH WNL continue eliquis. will start heparin gtt if DVT/PE positive continue telemetry monitoring D Dimer elevated with RLE swelling and history of DVT/PE 27 years ago in [place] and was on "heparin injections" for 3 years CTA chest STAT US duplex lower extremities STAT continue eliquis for now pending CTA chest and duplex of lower extremities. if positive then heparin gtt if CT evidence of right heart strain may need echo not on O2 and saturating well Hypertension now hypertensive start norvasc at half her home dose 5mg po daily. (home dose 10mg po daily) Can increase if needed. Also on lisinopril at home 10mg po daily Patient counselled on importance of medication compliance as prescribed. Visit type - Emergency Visit Emergency Visit: Yes ED Registration Date: 01/27/20 Care time: The patient presented to the Emergency Department on the above date and was hospitalized for further evaluation of their emergent condition. - New Patient This patient is new to me today: Yes Date on this admission: 01/28/20 - Critical Care Critical Care patient: No
[2020-01-28] MEDS: amLODIPine BESYLATE 5 MG TABLET (FP) PO SCH (18:57)
[2020-01-28] MEDS ORDERED: amLODIPine BESYLATE 5 MG TABLET (FP) PO ONE (22:57)
[2020-01-29 06:55] LABS: BASO % 0.4 % (0-2.0); EOS % 3.5 % (0-4.5); HEMATOCRIT 36.1 % (32.4-45.2); HEMOGLOBIN 11.7 GM/dL (10.7-15.3); LYMPH % 57.8 % (8-40); MCH 26.4 pg (25.7-33.7); MCHC 32.4 g/dl (32.0-36.0); MEAN CELL VOLUME 81.6 fl (80-96); MEAN PLT VOLUME 9.9 fl (7.5-11.1); MONO % 7.5 % (3.8-10.2); NEUT % 30.8 % (42.8-82.8); PLATELET COUNT 135 K/MM3 (134-434); RBC 4.43 M/mm3 (3.60-5.2); RDW 15.4 % (11.6-15.6); WHITE BLOOD COUNT 4.3 K/mm3 (4.0-10.0)
[2020-01-29 07:20] LABS: ALBUMIN 3.3 g/dl (3.4-5.0); BILIRUBIN,TOTAL 0.3 mg/dL (0.2-1); BLOOD UREA NITROGEN 6.9 mg/dL (7-18); CALCIUM 8.8 mg/dL (8.5-10.1); CREATININE 0.6 mg/dL (0.55-1.3); POTASSIUM 3.8 mmol/L (3.5-5.1)
[2020-01-29 07:40] LABS: TOT PROT 6.7 g/dl (6.4-8.2)
[2020-01-29] MEDS: APIXABAN 5 MG TABLET PO SCH (09:22)
[2020-01-29] MEDS: metoPROLOL SUCCINATE 25 MG TAB.SR.24H (FP) PO SCH (09:22)
[2020-01-29] MEDS: amLODIPine BESYLATE 5 MG TABLET (FP) PO SCH (09:22)
--- NOTE | 2020-01-29 12:20 | PN ---
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 She admitted to decreasing her beta viktor intake to 12.5 mg. She denied shortness of breath or chest pains. - Current Medication List Current Medications: Active Medications Amlodipine Besylate (Norvasc -) 5 mg PO DAILY [facility] Last Admin: 01/29/20 09:22 Dose: 5 mg Documented by: Apixaban (Eliquis -) 5 mg PO BID [facility] Last Admin: 01/29/20 09:22 Dose: 5 mg Documented by: Metoprolol Succinate (Toprol Xl -) 25 mg PO DAILY [facility] Last Admin: 01/29/20 09:22 Dose: 25 mg Documented by: - Objective Vital Signs: Vital Signs Temperature 97.8 F 01/29/20 09:20 Pulse Rate 55 L 01/29/20 12:01 Respiratory Rate 01/29/20 12:01 Blood Pressure 147/82 01/29/20 12:01 O2 Sat by Pulse Oximetry (%) 97 01/29/20 12:01 Constitutional: Yes: No Distress, Calm Neck: Yes: Supple Cardiovascular: Yes: Regular Rate and Rhythm Respiratory: Yes: Regular, CTA Bilaterally Gastrointestinal: Yes: Normal Bowel Sounds, Soft, Abdomen, Obese Edema: No Labs: CBC, BMP 01/29/20 06:20 01/29/20 06:20 INR, PTT INR 0.93 (0.83-1.09) 01/27/20 16:00 - ....Imaging EKG: Report Reviewed (Tele: NSR no PAF) Problem List - Problems (1) Hypertension Code(s): I10 - ESSENTIAL (PRIMARY) HYPERTENSION Qualifiers: Hypertension type: essential hypertension Qualified Code(s): I10 - Essential (primary) hypertension Assessment/Plan 01/27/2020 ECHO today in the office nl LV nl EF nl RV Problem List - Problems (1) Afib Code(s): I48.91 - UNSPECIFIED ATRIAL FIBRILLATION Qualifiers: Atrial fibrillation type: unspecified Qualified Code(s): I48.91 - Unspecified atrial fibrillation (11) Palpitations Code(s): R00.2 - PALPITATIONS Assessment/Plan 1. PAF with RVR ->SR 2. Hypertension 3. Palpitations 4. Hyperlipidemia 5. Morbid obesity r/o OSAS P:1. Continue Toprol XL 25 qd, AC with Eliquis, Norvasc 5 qd, resume lisinopril 10 qd 2. Sleep study as outpatient
[2020-01-29] MEDS ORDERED: LISINOPRIL 10 MG TABLET (FP) PO SCH (13:15)
[2020-01-29 14:23] VITALS: BP 147/87; PULSE 69; TEMP 98.7
--- NOTE | 2020-01-29 16:12 | DS ---
Physical Examination Vital Signs: Vital Signs Temperature 98.7 F 01/29/20 14:21 Pulse Rate 69 01/29/20 14:21 Respiratory Rate 20 01/29/20 14:21 Blood Pressure 147/87 01/29/20 14:21 O2 Sat by Pulse Oximetry (%) 97 01/29/20 12:01 Findings/Remarks: onstitutional: Yes: Anxious, Obese Eyes: Yes: Conjunctiva Clear, EOM Intact HENT: Yes: Atraumatic, Normocephalic Neck: Yes: Supple Cardiovascular: Yes: Regular Rate and Rhythm Respiratory: Yes: Regular, CTA Bilaterally Gastrointestinal: Yes: WNL, Soft Extremities: Yes: Other (RLE taut when compared to LLE.) Edema: Yes Edema: RLE: Trace Neurological: Yes: Alert, Oriented, Cran Nerves II-XII Intact Psychiatric: Yes: Alert, Oriented Labs: CBC, BMP 01/29/20 06:20 01/29/20 06:20 Discharge Summary Problems reviewed: Yes Reason For Visit: ATRIAL FIBRILLATION Current Active Problems Atrial fibrillation with rapid ventricular response (Acute) Headache (Acute) Hypertension (Acute) Hospital Course: 59F with history of DVT/PE, CVA, PAF, HTN and recurrent episodes of syncope presented with palpitations and lightheadedness found to be in A fib with RVR with a ventricular rate of [address] Navarrete's note. Patient was in her cardiologists office and was symptomatic and sent to the ER. She was given Cardizem and is now in sinus rhythm. She is now on eliquis, lisinopril, norvasc, and Toprol XL. She was noted to have a D Dimer elevation and RLE exam showed a taut calf so a CTA chest and US DUplex of both lower extremities were done and found to be negative. Condition: Stable - Instructions Diet, Activity, Other Instructions: You were hospitalized because your heart rate was fast. You went into atrial fibrillation. You are now back in Sinus rhythm. Please make sure you take all medications as prescribed. It is important you do not skip or miss doses. PLease follow up with your primary care doctor and your cardiologists within 1-2 weeks. supervisor sandblaster your medications from the pharmacy. Eat a low sodium low fat diet diet and exercise is important and can help improve some medical conditions such as hypertension (high blood pressure). Referrals: Amanda Lai MD [Primary Care Provider] - 2 Weeks (please follow up with primary care in 1-2 weeks) Kenan Whitmore MD [Staff Physician] - 2 Weeks (This is the custom dressmaker. Please make follow up appointment with Dr. Osorio or [place]) Disposition: HOME - Home Medications Comprehensive Discharge Medication List: Ambulatory Orders Amlodipine Besylate [Norvasc -] 10 mg PO DAILY tablet 01/29/20 Apixaban [Eliquis -] 5 mg PO BID #60 tablet 01/29/20 Lisinopril 10 mg PO DAILY #30 tablet 01/29/20 Metoprolol Succinate 25 mg PO DAILY #30 tab.sr 01/29/20 This patient is new to me today: No Emergency Visit: Yes ED Registration Date: 01/27/20 Care time: The patient presented to the Emergency Department on the above date and was hospitalized for further evaluation of their emergent condition. Critical Care patient: No - Discharge Referral Referred to [facility] No
--- NOTE | 2020-02-01 10:28 | EKG ---
Test Reason : Blood Pressure : / mmHG Vent. Rate : 145 BPM Atrial Rate : 147 BPM P-R Int : 000 ms QRS Dur : 106 ms QT Int : 308 ms P-R-T Axes : 000 011 248 degrees QTc Int : 478 ms SUPRAVENTRICULAR TACHYCARDIA LEFT VENTRICULAR HYPERTROPHY WITH REPOLARIZATION ABNORMALITY CANNOT RULE OUT SEPTAL INFARCT , AGE UNDETERMINED ABNORMAL ECG WHEN COMPARED WITH ECG OF 06-SEP-2016 03:38, SIGNIFICANT CHANGES HAVE OCCURRED Confirmed by MD Torito, Jovanny ([id number]) on 02/01/2020 10:27:41 AM Referred By: Confirmed By:Jovanny Ugarte MD
--- NOTE | 2020-02-01 10:28 | EKG ---
Test Reason : Blood Pressure : / mmHG Vent. Rate : 076 BPM Atrial Rate : 076 BPM P-R Int : 336 ms QRS Dur : 096 ms QT Int : 388 ms P-R-T Axes : 036 011 021 degrees QTc Int : 436 ms SINUS RHYTHM WITH 1ST DEGREE A-V BLOCK MODERATE VOLTAGE CRITERIA FOR LVH, MAY BE NORMAL VARIANT BORDERLINE ECG WHEN COMPARED WITH ECG OF 27-JAN-2020 15:48, [place] INTERVAL HAS INCREASED VENT. RATE HAS DECREASED BY 69 BPM MINIMAL CRITERIA FOR SEPTAL INFARCT ARE NO LONGER PRESENT ST NO LONGER DEPRESSED IN INFERIOR LEADS ST NO LONGER DEPRESSED IN LATERAL LEADS NONSPECIFIC T WAVE ABNORMALITY, IMPROVED IN LATERAL LEADS Confirmed by MD Torito, Jovanny ([id number]) on 02/01/2020 10:27:34 AM Referred By: Confirmed By:Jovanny Ugarte MD
== END 2020-01-29 19:41 | disposition home or self-care (01) | DRG 310 ==
LOC: JER 15:32 → JERBED 19:27 → J4W 23:16
PROVIDERS: ADMIT Internal Medicine; ATTEND Internal Medicine
DX: I48.0 Paroxysmal atrial fibrillation (principal); R00.0 Tachycardia, unspecified; I44.0 Atrioventricular block, first degree; I10 Essential (primary) hypertension; F20.9 Schizophrenia, unspecified; E78.5 Hyperlipidemia, unspecified; E66.9 Obesity, unspecified; Z68.36 Body mass index [BMI] 36.0-36.9, adult; Z86.718 Personal history of other venous thrombosis and embolism; Z86.711 Personal history of pulmonary embolism
CPT/HCPCS: 36415; 71045-TC-FY; 71275-TC; 80053; 81003; 82550; 82553; 83735; 84443; 84484; 85025; 85379; 85610; 85730; 93005; 93010; 93970-TC; 99285-25; Q9967; U0003

== ENCOUNTER 2021-06-10 18:18 | Emergency (ER) | payer OTHER ==
[2021-06-10 18:52] VITALS: BP 152/84; PULSE 73; TEMP 98.2; BMI 37.5
[2021-06-10 23:37] LABS: BASO % 0.6 % (0-2.0); EOS % 0.7 % (0-4.5); HEMATOCRIT 38.7 % (32.4-45.2); HEMOGLOBIN 12.2 GM/dL (10.7-15.3); LYMPH % 67.7 % (8-40); MCHC 31.6 g/dl (32.0-36.0); MEAN CELL VOLUME 82.1 fl (80-96); MEAN PLT VOLUME 10.3 fl (7.5-11.1); MONO % 13.2 % (3.8-10.2); NEUT % 17.8 % (42.8-82.8); PLATELET COUNT 137 10^3/uL (134-434); RBC 4.71 M/mm3 (3.60-5.2); RDW 16.1 % (11.6-15.6); WHITE BLOOD COUNT 3.5 K/mm3 (4.0-10.0)
[2021-06-10 23:44] LABS: INR 1.1 (0.83-1.09); PROTHROMBIN TIME (PATIENT) 12.9 SEC (9.7-13.0)
[2021-06-11 00:12] LABS: CHLORIDE 107 mmol/L (98-107); SODIUM 141 mmol/L (136-145)
[2021-06-11 00:17] LABS: ANION GAP 6 MMOL/L (8-16); BLOOD UREA NITROGEN 11.1 mg/dL (7-18); CO2 28 mmol/L (21-32)
[2021-06-11 00:18] LABS: ALBUMIN 3.1 g/dl (3.4-5.0); GLUCOSE,RANDOM 95 mg/dL (74-106)
[2021-06-11 00:20] LABS: CREATININE 0.8 mg/dL (0.55-1.3)
[2021-06-11 00:21] LABS: SGOT/AST 17 U/L (15-37); SGPT/ALT 26 U/L (13-61)
[2021-06-11 00:22] LABS: BILIRUBIN,TOTAL 0.3 mg/dL (0.2-1); TOT PROT 6.8 g/dl (6.4-8.2)
[2021-06-11 00:23] LABS: ALK PHOS 56 U/L (45-117)
[2021-06-11 01:59] LABS: ANISOCYTOSIS 1+; MACROCYTOSIS 0; PLATELET ESTIMATE DECREASED
== END 2021-06-11 03:16 | disposition left against medical advice (07) ==
LOC: JER 18:18
DX: U07.1 COVID-19 (principal); R07.9 Chest pain, unspecified
CPT/HCPCS: 36415; 71046-TC-FY; 80053; 82550; 82553; 84484; 85025; 85610; 85730; 87804; 93005; 93010; 99285-25; C9803; U0003; U0005